=== PATIENT | female | born 1990 | race Caucasian/White ===

== ENCOUNTER 2016-09-25 23:56 | Emergency (ER) | payer OTHER, BC ==
[~2016-09-25] VITALS: Ht 157.5 cm; Wt 45.4 kg
[2016-09-26 00:10] VITALS: BP_SYST 104
[2016-09-26] MEDS ORDERED: IBUPROFEN 800 MG TABLET PO ONE (00:30)
[2016-09-26 01:35] VITALS: BP_SYST 104
== END 2016-09-26 01:35 | disposition home or self-care (01) ==
LOC: SED 23:56
DX: S16.1XXA Strain of muscle, fascia and tendon at neck level, initial encounter (principal); S20.312A Abrasion of left front wall of thorax, initial encounter; Z88.2 Allergy status to sulfonamides; V49.49XA Driver injured in collision with other motor vehicles in traffic accident, initial encounter; Y93.89 Activity, other specified; Y92.89 Other specified places as the place of occurrence of the external cause; Y99.8 Other external cause status
CPT/HCPCS: 72040-TC; 99284